=== PATIENT | female | born 1990 | race African-American/Black ===

== ENCOUNTER 2017-09-16 14:30 | Emergency (ER) | payer BC ==
[2017-09-16 15:56] LABS: ABS Basophils 0.1 10^3/ul (0-0.2); ABS Eosinophils 0.1 10^3/ul (0-0.6); ABS Monocytes 0.5 10^3/ul (0-0.8); ABS Neutrophils 3.8 10^3/ul (1.5-7.7); ABS Nucleated RBC 0 10^3/ul; Eosinophil % 1.1 % (0-6); Hematocrit 36 % (35-47); Lymphocyte % 47.4 % (25-47); Mean Corpuscular HGB Conc 34 g/dl (31-36); Mean Corpuscular Hemoglobin 30 pg (27-31); Mean Corpuscular Volume 88 fL (80-97); Mean Platelet Volume 8.8 um3 (7.4-10.4); Nucleated Red Blood Cells % 0.1; Platelet Count 229 10^3/ul (150-450); Red Blood Count 4.08 10^6/ul (4.00-5.40); Red Cell Distribution Width 14 % (10.5-15); White Blood Count 8.4 10^3/ul (3.5-10.8)
[2017-09-16 16:12] LABS: EGFR Non-African American 98.7 (>60)
[2017-09-16 16:20] LABS: Urine Appearance Cloudy; Urine Blood Negative (Negative); Urine Color Yellow; Urine Ketones Negative (Negative); Urine Protein 1+(30 mg/dL) (Negative); Urine Specific Gravity 1.025 (1.010-1.030); Urine Urobilinogen Negative (Negative)
--- NOTE | 2017-09-16 17:28 | RAD ---
INDICATION: Right flank pain, history of kidney stones. COMPARISON: There are no prior studies available for comparison. TECHNIQUE: A CT scan of the abdomen and pelvis was performed without intravenous and without oral contrast. Contiguous axial sections were obtained from the lung bases through the symphysis pubis. Images were reconstructed in the coronal and sagittal planes. FINDINGS: The lung bases are clear. No pleural effusion is present. The liver is mildly enlarged without significant focal abnormality on this noncontrast study. No calcified gallstones are seen. The spleen and pancreas appear to be within normal limits. The adrenal glands and kidneys are normal in size. No renal calculi or hydronephrosis is seen. There are multiple calcific densities present within the pelvis on the right side limiting the study. The aorta is normal in caliber without significant calcific plaque. No significant enlarged retroperitoneal lymph nodes are seen. The stomach, small and large bowel appear nondistended. The appendix is within normal limits. There is a moderate to large amount retained stool present throughout the colon. The uterus is anteverted and normal in size. There is a T-shaped IUD present. No free intraperitoneal air or fluid is seen. No significant focal osseous abnormality is seen. IMPRESSION: 1. NO EVIDENCE FOR ACUTE FINDING OR CAUSE FOR THE PATIENT'S ABDOMINAL PAIN IS SEEN. THE EXAM IS SLIGHTLY LIMITED, IF THE PATIENT'S SYMPTOMS PERSIST RECOMMEND FOLLOW-UP IMAGING. 3. MILD HEPATOMEGALY. 4. MODERATE TO LARGE AMOUNT RETAINED STOOL.
[2017-09-16] MEDS ORDERED: Ketorolac INJ* 30 MG/ML 1 ML VIAL IV PUSH ONE (17:47)
[2017-09-16 18:21] VITALS: BP 110/76
--- NOTE | 2017-09-18 18:08 | PN ---
Progress Note - Progress Note Date of Service: 09/18/17 Note: preliminary urine culture grew enterococcus 50-75,000. Nonsignificant urine cultures will not treat at this time.
--- NOTE | 2017-09-19 10:31 | ED ---
Emil Lao Angela, scribed for Pranay Tom MD on 09/16/17 at 1625 . Abdominal Pain/Female - HPI Summary HPI Summary: This pt is a 27 y/o female presenting to [facility] c/o bilateral, more right than left, flank pain for the past 1 week. Pt notes she has had bilateral flank pain for the past 1 week, described as achy. She states that her sharp right flank pain began last night. Pt currently rates her pain 8.5 out of 10 in severity. Additionally she reports nausea. Denies vomiting, diarrhea, constipation. She has taken Tylenol and ibuprofen with no relief. Pt has had this similar pain before when she had kidney stones. She had a lithotripsy done and stent placed last summer. She reports she had 3 mm stone on the right and 1.5 mm on the left. - History of Current Complaint Chief Complaint: EDFlankPain Stated Complaint: RT FLANK PAIN Time Seen by Provider: 09/16/17 15:44 Hx Obtained From: Patient Onset/Duration: Lasting Days, Still Present Timing: Days Severity Currently: Severe Pain Intensity: 8 Pain Scale Used: 0-10 Numeric Location: Flank - more right than left Radiates: No Character: Sharp Aggravating Factor(s): Nothing Alleviating Factor(s): Nothing Associated Signs and Symptoms: Positive: Nausea, Other: - NEG: SOB. Negative: Fever, Chest Pain, Constipation, Vomiting, Diarrhea Allergies/Adverse Reactions: Allergies Allergy/AdvReac Type Severity Reaction Status Date / Time cephalexin [From Keflex] Allergy Swelling Verified 09/16/17 14:48 Home Medications: Home Medications Nicotine GUM* 2 mg PO Q2H PRN 09/16/17 [History Confirmed 09/16/17] Nicotine PATCH 14 MG/24 HR* 14 mg TRANSDERM DAILY 09/16/17 [History Confirmed ] Prazosin CAP* [Minipress CAP*] 1 mg PO BEDTIME 09/16/17 [History Confirmed 09/16] Sertraline* [Zoloft*] 50 mg PO DAILY 09/16/17 [History Confirmed 09/16/17] PMH/Surg Hx/FS Hx/Imm Hx Endocrine/Hematology History: Denies: Hx Diabetes Cardiovascular History: Denies: Hx Hypertension History: Reports: Hx Kidney Stones Infectious Disease History: No Infectious Disease History: Denies: Traveled Outside the [place] in Last 30 Days - Family History Known Family History: Negative: Cardiac Disease - Social History Alcohol Use: Occasionally Substance Use Type: Reports: None Smoking Status (MU): Never Smoked Tobacco Review of Systems Negative: Fever, Chills Negative: Chest Pain Negative: Shortness Of Breath Positive: Nausea. Negative: Vomiting, Diarrhea, Other - constipation Positive: flank pain - more right than left Skin: Negative Neurological: Negative All Other Systems Reviewed And Are Negative: Yes Physical Exam - Summary Physical Exam Summary: VITAL SIGNS: Reviewed. GENERAL: Patient is a well-developed and nourished female who is lying comfortable in the stretcher. Patient is not in any acute respiratory distress. HEAD AND FACE: Normocephalic and atraumatic. EYES: PERRLA, EOMI x 2, No injected conjunctiva. EARS: Hearing grossly intact. Ear canals and tympanic membranes are WNL. MOUTH: Oropharynx within normal limits. NECK: Supple, trachea is midline, no adenopathy, no JVD. CHEST: Symmetric, no tenderness at palpation LUNGS: Clear to auscultation bilaterally. No wheezing or crackles. CVS: RRR, S1 and S2 present, no murmurs or gallops appreciated. ABDOMEN: Soft. Right flank tenderness. Right costovertebral angle tenderness. No signs of distention. Positive bowel sounds. No rebound no guarding, and no masses palpated. No abdominal bruit or pulsations. EXTREMITIES: FROM in all major joints, no edema, no cyanosis or clubbing. NEURO: Alert and oriented x 3. No acute neurological deficits. Speech is normal. SKIN: Dry and warm Triage Information Reviewed: Yes Vital Signs On Initial Exam: Initial Vitals Temp Pulse Resp BP Pulse Ox 97.7 F 68 18 110/71 98 09/16/17 14:45 09/16/17 14:45 09/16/17 14:45 09/16/17 14:45 09/16/17 14:45 Vital Signs Reviewed: Yes Diagnostics - Vital Signs Vital Signs Temp Pulse Resp BP Pulse Ox 09/16/17 14:45 97.7 F 68 18 110/71 98 - Laboratory Lab Results: Lab Results 09/16/17 09/16/17 09/16/17 Range/Units 15:45 15:45 15:45 WBC 8.4 (3.5-10.8) 10^3/ul RBC 4.08 (4.00-5.40) 10^6/ul Hgb 12.0 (12.0-16.0) g/dl Hct 36 (35-47) % MCV 88 (80-97) fL MCH 30 (27-31) pg MCHC 34 (31-36) g/dl RDW 14 (10.5-15) % Plt Count 229 (150-450) 10^3/ul MPV 8.8 (7.4-10.4) um3 Neut % (Auto) 44.9 (38-83) % Lymph % (Auto) 47.4 H (25-47) % Pitt % (Auto) 5.9 (0-7) % Eos % (Auto) 1.1 (0-6) % Baso % (Auto) 0.7 (0-2) % Absolute Neuts (auto) 3.8 (1.5-7.7) 10^3/ul Absolute Lymphs (auto) 4.0 (1.0-4.8) 10^3/ul Absolute Monos (auto) 0.5 (0-0.8) 10^3/ul Absolute Eos (auto) 0.1 (0-0.6) 10^3/ul Absolute Basos (auto) 0.1 (0-0.2) 10^3/ul Absolute Nucleated RBC 0 10^3/ul Nucleated RBC % 0.1 Sodium 137 (135-145) mmol/L Potassium 4.4 (3.5-5.0) mmol/L Chloride 104 (101-111) mmol/L Carbon Dioxide 27 (22-32) mmol/L Anion Gap 6 (2-11) mmol/L BUN 15 (6-24) mg/dL Creatinine 0.71 (0.51-0.95) mg/dL Est GFR ( Amer) 127.0 (>60) Est GFR (Non-Af Amer) 98.7 (>60) BUN/Creatinine Ratio 21.1 H (8-20) Glucose 104 H (70-100) mg/dL Lactic Acid 0.6 (0.5-2.0) mmol/L Calcium 8.8 (8.6-10.3) mg/dL Total Bilirubin 0.30 (0.2-1.0) mg/dL AST 34 (13-39) U/L ALT 64 H (7-52) U/L Alkaline Phosphatase 44 (34-104) U/L C-Reactive Protein 1.36 (< 5.00) mg/L Total Protein 7.0 (6.4-8.9) g/dL Albumin 3.9 (3.2-5.2) g/dL Globulin 3.1 (2-4) g/dL Albumin/Globulin Ratio 1.3 (1-3) Lipase 40 (11.0-82.0) U/L Beta HCG, Quant < 0.60 mIU/mL Result Diagrams: 09/16/17 15:45 09/16/17 15:45 Lab Statement: Any lab studies that have been ordered have been reviewed, and results considered in the medical decision making process. - CT Abdomen/pelvis CT CT Interpretation: Positive (See Comments) - IMPRESSION: 1. No evidence for acute finding or cause for the patient's abdominal pain is seen. The exam is slightly limited, if the patient's symptoms persist recommend follow-up imaging. 3. Mild hepatomegaly. 4. Moderate to large amount of retained stool. Dr. Tom has reviewed this radiology report. CT Interpretation Completed By: Radiologist Re-Evaluation - Re-Evaluation First Eval Re-Evaluation Time: 18:04 Comment: I reviewed the lab and CT results with the pt. She will be discharged home. Abdominal Pain Fem Course/Dx - Course Course Of Treatment: Pt is a 27 y/o female, with hx of kidney stones, who presents with bilateral, more right than left, flank pain for the past 1 week. Pt notes she has had bilateral flank pain for the past 1 week, described as achy. She states that her sharp right flank pain began last night. Pt currently rates her pain 8.5 out of 10 in severity. Additionally she reports nausea. Test results without any significant abnormalities. Urinalysis is negative for UTI. Abdomen/Pelvis CT shows 1. No evidence for acute finding or cause for the patient's abdominal pain is seen. The exam is slightly limited, if the patient' s symptoms persist recommend follow-up imaging. 3. Mild hepatomegaly. 4. Moderate to large amount of retained stool. Pt was given Toradol for the pain and her symptoms improved. She declines a pelvic ultrasound or pelvic exam. Therefore pt will be discharged home with follow up from PCP. I discussed all the findings and test results with the patient. All questions were answered to patient satisfaction. There were no further complaints or concerns. She is instructed to return to the ED for any worsening or new symptoms. Pt is hemodynamically stable, alert and oriented x3. - Diagnoses Provider Diagnoses: Flank pain Discharge - Sign-Out/Discharge Documenting (check all that apply): Discharge/Admit/Transfer - Discharge - Discharge Plan Condition: Stable Disposition: HOME Patient Education Materials: Flank Pain (ED) Referrals: [facility] [Outside] - 3 Days Additional Instructions: Please establish a primary care provider and follow up. RETURN TO THE ED FOR ANY NEW OR WORSENING SYMPTOMS. The documentation as recorded by the Emil werner Angela accurately reflects the service I personally performed and the decisions made by me, Pranay Tom MD.
== END 2017-09-16 18:20 | disposition home or self-care (01) ==
LOC: ED 14:30
DX: R10.9 Unspecified abdominal pain (principal); R16.0 Hepatomegaly, not elsewhere classified; Z87.442 Personal history of urinary calculi; Z88.3 Allergy status to other anti-infective agents
CPT/HCPCS: 36415; 74176; 80053; 81003; 81015; 83605; 83690; 84702; 85025; 86140; 87077; 87086; 87186; 96374; 99283; J1885